=== PATIENT | female | born 1980 | race Caucasian/White ===

== ENCOUNTER → 2021-06-13 | Outpatient (CLI) | payer OTHER ==
--- NOTE | 2021-06-13 15:51 | REPMRS ---
Patient History The patient states she has not had a clinical breast exam in over a year. Patient had first child at age 34. No known family history of cancer. Patient states no breast complaints today. Patient has signed MRS History Sheet. Digital Woman Screen Mammo: June 13, 2021 - Exam #: [id number] Bilateral CC and MLO view(s) were taken. Technologist: Christine Feldman, Technologist FINDINGS: There are scattered fibroglandular densities. Screening. Digital screening (2D) mammography was performed bilaterally in the CC and MLO projections. Additionally, breast tomosynthesis (3D mammography) was performed bilaterally in the CC and MLO projections. Todays exam was compared to the prior exam/exams. By history, the patient has no complaints of a palpable breast abnormality or other significant breast complaints. The Volpara volumetric breast density category is B, there are scattered areas of fibroglandular densities. The breasts are unchanged in size and shape. There are no annette-soft tissue densities or spiculated masses. There is no internal architectural distortion. There are no suspicious annette-calcific clusters. Skin thickening or nipple retraction is not present. IMPRESSION: BI-RADS Category 2- Benign Findings. There is no evidence of malignant alteration of the breasts. Followup examination recommended in one year. The lifetime Tyrer-Cuzick score is 16.8% This mammogram was read with the assistance of [employer],an FDA approved computer aided detection system for mammography. Negative x-ray reports should not delay surgical consultation if a dominant or clinically suspicious mass is present. Not all breast cancers can be identified by mammography. Therefore, we recommend that you continue to perform regular breast self-examination and physical examination and then promptly contact your physician of any concerns or changes. Adenosis and dense breasts may obscure an underlying neoplasm. No significant changes when compared with prior studies. Assessment: BI-RADS/ACR category 2 mammogram. Benign Findings. Recommendation Routine screening mammogram of both breasts in 1 year. Electronically Signed By: Gonzalo Chirinos MD 06/13/21 0909
== END ==
LOC: M WHC 13:13
PROVIDERS: ATTEND Family Medicine
DX: Z12.31 Encounter for screening mammogram for malignant neoplasm of breast (principal)

== ENCOUNTER → 2022-08-06 | Outpatient (CLI) | payer OTHER | LOC: M WHC 07:53 | PROVIDERS: ATTEND Family Medicine | DX: Z12.31 Encounter for screening mammogram for malignant neoplasm of breast (principal) ==

== ENCOUNTER → 2022-09-22 | Outpatient (CLI) | payer OTHER ==
[~2022-09-22] MED LIST: NAPR-885 PO
== END ==
LOC: M CARPUL 08:07
PROVIDERS: ATTEND Family Medicine
DX: R06.02 Shortness of breath (principal)

== ENCOUNTER → 2023-05-08 | Outpatient (CLI) | payer OTHER ==
[~2023-05-08] MED LIST changes: +ISOVUE-300 61% 100ML VIAL As Ordered ONE; +LIDOCAINE 1% MDV 20ML VIAL As Ordered ONE; +LORA-930; +PROHANCE 279.3MG/ML 5ML VIAL As Ordered ONE
== END ==
LOC: M RAD 12:50
PROVIDERS: ATTEND Family Medicine
DX: S43.401A Unspecified sprain of right shoulder joint, initial encounter (principal)
CPT/HCPCS: 20610; 73223; 77002; A9576; Q9967

== ENCOUNTER → 2023-05-25 | Outpatient (CLI) | payer OTHER ==
[~2023-05-25] MED LIST changes: -ISOVUE-300 61% 100ML VIAL As Ordered ONE; -LIDOCAINE 1% MDV 20ML VIAL As Ordered ONE; +METHACHOLINE KIT INH ONE; -PROHANCE 279.3MG/ML 5ML VIAL As Ordered ONE
== END ==
LOC: M CARPUL 08:59
PROVIDERS: ATTEND Family Medicine
DX: R06.00 Dyspnea, unspecified (principal)
CPT/HCPCS: 94070; J7674

== ENCOUNTER → 2023-06-30 | Outpatient (CLI) | payer OTHER ==
[~2023-06-30] MED LIST changes: +ISOVUE-300 61% 100ML VIAL As Ordered ONE; +LIDOCAINE 1% MDV 20ML VIAL As Ordered ONE; -METHACHOLINE KIT INH ONE; +PROHANCE 279.3MG/ML 5ML VIAL As Ordered ONE
== END ==
LOC: M RAD 06:34
PROVIDERS: ATTEND Family Medicine
DX: M25.512 Pain in left shoulder (principal); M75.42 Impingement syndrome of left shoulder; S43.432A Superior glenoid labrum lesion of left shoulder, initial encounter; X58.XXXA Exposure to other specified factors, initial encounter; Y92.9 Unspecified place or not applicable
CPT/HCPCS: 23350; 73223; 77002; A9576; Q9967

== ENCOUNTER → 2023-10-16 | Outpatient (CLI) | payer OTHER ==
[~2023-10-16] MED LIST changes: -ISOVUE-300 61% 100ML VIAL As Ordered ONE; -LIDOCAINE 1% MDV 20ML VIAL As Ordered ONE; -PROHANCE 279.3MG/ML 5ML VIAL As Ordered ONE
== END ==
LOC: M WHC 08:03
PROVIDERS: ATTEND Family Medicine
DX: Z12.31 Encounter for screening mammogram for malignant neoplasm of breast (principal)

== ENCOUNTER → 2024-02-05 | Outpatient (CLI) | payer OTHER | LOC: M RAD 15:10 | PROVIDERS: ATTEND Otolaryngology | DX: J32.9 Chronic sinusitis, unspecified (principal) ==

== ENCOUNTER → 2024-10-18 | Outpatient (CLI) | payer OTHER | LOC: M PLAIMG 09:36 | PROVIDERS: ATTEND Student in an Organized Health Care Education/Training Program | DX: M26.609 Unspecified temporomandibular joint disorder, unspecified side (principal) ==

== ENCOUNTER → 2024-10-25 | Outpatient (CLI) | payer OTHER | LOC: M WHC 08:10 | PROVIDERS: ATTEND Family Medicine | DX: Z12.31 Encounter for screening mammogram for malignant neoplasm of breast (principal); R92.313 Mammographic fatty tissue density, bilateral breasts ==